=== PATIENT | female | born 1970 | race Caucasian/White ===

== ENCOUNTER → 2016-04-24 | Outpatient (REF) | LOC: WSOH 09:15 → WSPT 10:00 | DX: Z02.1 Encounter for pre-employment examination (principal) ==

== ENCOUNTER → 2016-04-28 | Outpatient (REF) | LOC: WSOH 13:36 | DX: Z02.89 Encounter for other administrative examinations (principal) ==

== ENCOUNTER → 2016-10-20 | Outpatient (REF) | LOC: WSOH 13:04 | DX: Z02.89 Encounter for other administrative examinations (principal) ==

== ENCOUNTER → 2017-02-09 | Outpatient (CLI) | payer BC | LOC: MC.RAD 02-01 09:20 | DX: Z12.31 Encounter for screening mammogram for malignant neoplasm of breast (principal) ==

== ENCOUNTER → 2018-03-04 | Outpatient (CLI) | payer BC | LOC: MC.RAD 08:37 | DX: Z12.31 Encounter for screening mammogram for malignant neoplasm of breast (principal) ==

== ENCOUNTER → 2020-03-15 | Outpatient (CLI) | payer BC | LOC: MC.RAD 07:00 | DX: R92.2 Inconclusive mammogram (principal) ==

== ENCOUNTER → 2021-06-06 | Outpatient (CLI) | payer BC | LOC: MC.RAD 11:40 | DX: Z12.31 Encounter for screening mammogram for malignant neoplasm of breast (principal) ==

== ENCOUNTER → 2023-10-14 | Outpatient (CLI) | payer BC ==
[~2023-10-14] MED LIST: ALEVE 220MG220 MG PO; ALLEGRA 180MG180 MG PO; ASPI325T6 PO; ASPIRIN 81M81 MG/TA2 PO; ATARAX 25MG25 MG/TAB PO; AVAPRO300 M1 PO; BACTRIM DS 8001 TAB PO; CELEBREX 200MG200 MG PO; DOXYCYCLINE 10100 MG PO; EVENING PRIMR1300 MG PO; FLAXSEED OIL1000 MG PO; KRILL OIL 5001 EACH PO; LEXAPRO 10MG10 MG PO; MAGNESIUM250 M1 PO; MULTIVITAMIN FO1 CAP PO; NATURE'S BLEND160 MG PO; NATURE'S BLEND600 M2; NORCO 325 MG-51 TAB PO; NORVASC 5MG5 MG/TAB PO; OMEGA-3 1000 MG1 CAP PO; PROBIOTIC BLEN1 EACH PO; PROTONIX 40MG T40 MG PO; ROXICODONE 55 MG/TAB PO; THE MEDICINE S200 M2 PO; TURMERIC500 MG PO; TYLENOL 500MG500 MG PO; VITAMIN E 400 U4001 PO; VTAMINC250TA PO
== END ==
LOC: MC.RAD 09:00
DX: Z12.31 Encounter for screening mammogram for malignant neoplasm of breast (principal)